=== PATIENT | female | born 1940 | race Caucasian/White ===

== ENCOUNTER 2019-05-08 08:40 | Day surgery (SDC) | payer MEDICARE, BC ==
[~2019-05-08] VITALS: Ht 162.6 cm; Wt 54.7 kg
[~2019-05-08 08:40] MED LIST: ACYC200SU PO; AMERGE2.5 MG; ASPI81CH PO; ATORVASTATIN CA20 MG PO; Boniva150 MG; CHOL10002; CONEST.625 PO; CRANBERRY250 MG PO; Chondroitin Su250 MG PO; FISH OIL 1,0001 EAC1 PO; Inderal 20 mg T20 MG; Kristalose20 GM PO; LEVSOD75 PO; NAPR220 PO; OMEPRAZOLE MAGN20 MG PO; Oyst-Cal-500500 MG PO; SERT50 PO; UBID10 PO; VERA120 PO; ZOLM5ODT; ZYRTEC10 M1 PO
--- NOTE | 2019-05-08 09:43 | NUR ---
05/08/19 0943 Edilson Toro 1 TRY AC RIGHT VALVE 2 GOOD LEFT AC
--- NOTE | 2019-05-08 11:11 | NUR ---
05/08/19 1111 Marizol Jaquez S PT. WITH CLEAR SECRETIONS RUNNING OUT OF HER MOUTH WHILE SLEEPING. PT. SUCTIONED ORALLY FOR SMALL AMT. CLEAR SECRETIONS.
== END 2019-05-08 11:00 | disposition home or self-care (01) ==
LOC: ORSCSDS 08:40
PROVIDERS: Surgery
PROC: 0DJD8ZZ Inspection of Lower Intestinal Tract, Via Natural or Artificial Opening Endoscopic (ICD-10-PCS; principal; 2019-05-08 10:00)
DX: Z12.11 Encounter for screening for malignant neoplasm of colon (principal); Z86.010 Personal history of colon polyps; K64.8 Other hemorrhoids; E78.5 Hyperlipidemia, unspecified; J45.909 Unspecified asthma, uncomplicated; F32.9 Major depressive disorder, single episode, unspecified; E03.9 Hypothyroidism, unspecified; Z79.82 Long term (current) use of aspirin; Z79.899 Other long term (current) drug therapy
CPT/HCPCS: J0330; J0461; J2405; J2704; J7120

== ENCOUNTER → 2019-07-30 | Outpatient (CLI) | payer MEDICARE, BC | END | disposition home or self-care (01) | LOC: PLD 11:48 → LAB SHORT 11:48 | DX: C44.321 Squamous cell carcinoma of skin of nose (principal) | CPT/HCPCS: 88305 ==

== ENCOUNTER → 2021-03-07 | Outpatient (CLI) | payer MEDICARE, BC | END | disposition home or self-care (01) | LOC: LAB SHORT 12:17 → LAB 12:17 | DX: L82.1 Other seborrheic keratosis (principal) | CPT/HCPCS: 88305 ==

== ENCOUNTER → 2024-06-23 | Outpatient (CLI) | payer MEDICARE ==
[~2024-06-23] MED LIST changes: +ACYCLOVIR15 GM; +AMERGE; +ASPI300S; +ASPI81CH; +ATOR20 PO; +CETI5; +MAGCHL64ER; +OMEGA-3 + VITA200 ML; +PREMARIN VAG; +PROLIA60 MG/1 ML; +SERT100; +Synthroid200 MCG; +TOCO1000; +VITAMIN B125000 MC1; +Zovirax Cream 5%2 GM
[2024-06-23 11:45] LABS: BASOPHILS ABSOLUTE AUTO 0.04 K/mm3 (0.00-0.23); BASOPHILS PERCENT AUTO 1 % (0-2); EOSINOPHILS ABSOLUTE AUTO 0.03 K/mm3 (0.00-0.68); EOSINOPHILS PERCENT AUTO 1 % (0-6); Hematocrit 39.9 % (33.0-51.0); Hemoglobin 13.2 g/dL (11.5-16.0); IMMATURE GRAN ABSOLUTE AUTO 0.01 K/mm3 (0.00-0.10); IMMATURE GRAN PERCENT AUTO 0 % (0-1); LYMPHOCYTES ABSOLUTE AUTO 1.29 K/mm3 (0.84-5.20); LYMPHOCYTES PERCENT AUTO 21 % (21-46); MONOCYTES ABSOLUTE AUTO 0.71 K/mm3 (0.16-1.47); MONOCYTES PERCENT AUTO 11 % (4-13); Mean Corpuscular HGB 30.8 pg (26.0-34.0); Mean Corpuscular HGB Conc 33.1 g/dL (31.5-36.5); Mean Corpuscular Volume 93 fL (80-100); Mean Platelet Volume 10.4 fL (9.1-12.4); NEUTROPHILS ABSOLUTE AUTO 4.14 K/mm3 (1.96-9.15); NEUTROPHILS PERCENT AUTO 67 % (41-73); Platelet Count 234 K/mm3 (150-400); RDW Coefficient Variation 12.5 % (11.7-14.2); RDW Standard Deviation 43.2 fL (35.1-46.3); Red Blood Cell Count 4.28 M/mm3 (3.80-5.20); White Blood Cell Count 6.22 K/mm3 (4.00-11.30)
[2024-06-23 11:59] LABS: Albumin, Blood 3.5 g/dL (3.4-5.0); Albumin/Globulin Ratio 0.9 (0.8-1.8); Bilirubin, Total 0.4 mg/dL (0.1-1.0); Bun/Creatinine Ratio 21.7 (12.0-20.0); Calcium, Blood 9.6 mg/dL (8.5-10.1); Creatinine, Blood 0.65 mg/dL (0.40-1.00); Globulin, Blood 3.8 g/dL (2.2-4.0); Potassium, Blood 4.4 mmol/L (3.5-5.5); Total Protein, Blood 7.3 g/dL (6.4-8.2)
== END ==
LOC: LAB 10:48 → LAB SHORT 10:48
PROVIDERS: Family Medicine
DX: E78.49 Other hyperlipidemia (principal)
CPT/HCPCS: 80053; 85025